=== PATIENT | female | born 1960 | race Caucasian/White ===

== ENCOUNTER 2020-12-24 11:25 | Emergency (ER) | payer OTHER ==
[2020-12-24 13:57] LABS: BASOPHIL 0.1 % (0-2); EOSINOPHIL 2.1 % (0-5); HCT 27.7 % (37.0-47.0); HGB 8.7 g/dl (12.5-16.0); LYMPHOCYTE 16.7 % (15-48); MCH 28.5 pg (25.0-31.0); MCHC 31.4 g/dL (32.0-36.0); MCV 90.8 fL (78.0-100.0); MONOCYTE 7.6 % (0-12); MPV 9.4 fL (6.0-9.5); NEUTROPHIL 72.8 % (41-80); NRBC 0; PLT 212 K/uL (150-400); RBC 3.05 M/uL (4.20-5.40); RDW 14.5 % (11.5-14.0); WBC 6.8 K/uL (4.0-10.5)
[2020-12-24 14:16] LABS: BUN/CREAT RATIO (CALC) 8.7 RATIO; CREATININE 0.92 mg/dL (0.51-0.95); POTASSIUM 3.6 mmol/L (3.5-5.1)
== END 2020-12-24 16:15 | disposition home or self-care (01) ==
LOC: FER 11:25
PROVIDERS: Nurse Practitioner Family
DX: M96.89 Other intraoperative and postprocedural complications and disorders of the musculoskeletal system (principal); I10 Essential (primary) hypertension; J44.9 Chronic obstructive pulmonary disease, unspecified; Z88.5 Allergy status to narcotic agent; Z91.048 Other nonmedicinal substance allergy status; Z98.890 Other specified postprocedural states
CPT/HCPCS: 36415; 80048; 85025; 93971